=== PATIENT | female | born 2000 | race Caucasian/White ===

== ENCOUNTER 2023-10-10 06:33 | Inpatient (IN) | payer BC ==
[2023-10-10] MEDS ORDERED: CARBOPROST TROMETHAMINE 250 MCG/ML 1 ML AMP IM PRN (07:24)
[2023-10-10] MEDS ORDERED: OXYTOCIN 10 UNIT/ML 1 ML VIAL IM PRN (07:24)
[2023-10-10] MEDS ORDERED: TRANEXAMIC 1,000 MG/100ML-NACL 1,000 MG in EMPTY BAG 1 BAG IV PRN (07:24)
[2023-10-10] MEDS ORDERED: miSOPROStoL 200 MCG TAB PO PRN (07:24)
[2023-10-10] MEDS ORDERED: miSOPROStoL 200 MCG TAB RECTAL PRN (07:24)
[2023-10-10] MEDS ORDERED: TERBUTALINE 1 MG/ML VIAL SQ PRN (07:24)
[2023-10-10] MEDS: LACTATED RINGERS 1,000 ML IV SCH (07:32)
--- NOTE | 2023-10-10 07:32 | P.HPOB ---
History of Present Illness H&P Date: 10/10/23 Chief Complaint: Contractions, leaking of fluid Ms. Montanez is a 23 year old at 41 weeks and 3 days with EDC o 09/30/23 who presents to L&D with regular uterine contractions every 3-5 minutes and complaints of leaking of clear amniotic fluid since 7am yesterday morning (10/08). Amnisure is positive in triage and she is found to be 1/50/-3. The has been notable for the finding of a marginal cord insertion, for which she has had weekly surveillance throughout the third trimester. The fetus is estimated to be in the 26%ile for weight based on a 32 week US. work-up: blood type, O positive, antibody screen negative, rubella immune, VDRL non-reactive, HBsAg negative, HIV negative, HCV Ab non-reactive, gonorrhea negative, chlamydia negative, 1 hour GTT wnl, GBS negative. Past Medical History History of Any Multi-Drug Resistant Organisms: None Reported Smoking Status: Former smoker Medications and Allergies Home Medications Medication Instructions Recorded Confirmed Type No Known Home Medications 10/10/23 10/10/23 History Allergies Allergy/AdvReac Type Severity Reaction Status Date / Time No Known Allergies Allergy Verified 10/10/23 06:39 Exam Intake and Output 10/09/23 10/10/23 10/10/23 22:59 06:59 14:59 Other: Weight 85.729 kg Focused physical exam is performed. This is a healthy-appearing in no apparent distress. Breathing is non-labored. Abdomen is gravid and non-tender. Cervical exam per OB RN is 1/50/-3. Amnisure is positive. Extremities non- tender and non-edematous. heart tones are Category I and tocometer is graphing contractions every 3-5 minutes. Assessment and Plan Assessment: 23 year old at 41 weeks and 3 days with prolonged rupture of membranes and regular uterine contractions Plan: Admit, clear liquid diet, pitocin per protocol, continuous EFM and tocometer. Per ACOG guidelines, will start antibiotics if clinical signs of chorioamnionitis develop. Continue to monitor closely.
[2023-10-10 07:50] LABS: Appearance,Urine Clear (Clear); Bilirubin,Urine Negative (Negative); Blood,Urine Negative (Negative); Color,Urine Colorless; Glucose,Urine (UA) Negative (Negative); Ketones,Urine Negative (Negative); Leukocyte Esterase,Urine Negative (Negative); Nitrite,Urine Negative (Negative); PH, Urine 6.5 (5.0-8.0); Protein,Urine Negative (Negative); Specific Gravity,Urine 1.006 (1.001-1.035); Urobilinogen,Urine <2.0 mg/dL (<2.0)
[2023-10-10 07:53] LABS: Basophils % (A) 0 %; Eosinophils # (A) 0.1 k/uL (0-0.7); Eosinophils % (A) 1 %; HCT 29.3 % (34.0-46.0); HGB 9.6 gm/dL (11.4-16.0); Lymphocytes # (A) 1.8 k/uL (1.0-4.8); Lymphocytes % (A) 21 %; MCH 29.6 pg (25.0-35.0); MCHC 32.9 g/dL (31.0-37.0); Mean Platelet Volume 10.5; Monocytes # (A) 0.5 k/uL (0-1.0); Monocytes % (A) 6 %; Neutrophils # (A) 6.3 k/uL (1.3-7.7); Neutrophils % (A) 71 %; Platelet Count 216 k/uL (150-450); RBC 3.26 m/uL (3.80-5.40); RDW 13.9 % (11.5-15.5); WBC 8.9 k/uL (3.8-10.6)
[2023-10-10 07:58] LABS: Creatinine,Urine Random 33.8 mg/dL; Protein/Creatinine Ratio,Urine 0.444
[2023-10-10 08:26] LABS: ALT 16 U/L (4-34); AST 29 U/L (14-36); African American GFR (CKD) >90 (>60 ml/min/1.73 sqM); Blood Urea Nitrogen 8 mg/dL (7-17); LDH 200 U/L (120-246); Non-African American GFR(CKD) >90 (>60 ml/min/1.73 sqM); Uric Acid 5.6 mg/dL (3.7-7.4)
[2023-10-10] MEDS: NALBUPHINE 10 MG/ML (10 ML MDV) IV PRN (10:33)
[2023-10-10] MEDS: OXYTOCIN 30 UNITS/500 ML NS 30 UNIT in SALINE 1 500ML.BAG IV SCH (11:14)
[2023-10-10] MEDS: PENICILLIN G POTASSIUM 5,000,000 UNIT in DEXTROSE 5% IN WATER 100 ML IVPB STA (15:41)
[2023-10-10] MEDS: PENICILLIN G POTASSIUM 2,500,000 UNIT in DEXTROSE 5% IN WATER 100 ML IVPB SCH (19:56)
[2023-10-10] MEDS ORDERED: fentaNYL (PF) 50 MCG/ML 5 ML AMP ONE (22:32)
[2023-10-10] MEDS ORDERED: SODIUM CHLORIDE 0.9% 250 ML BAG ONE (22:32)
[2023-10-10] MEDS ORDERED: ROPIVACAINE 5 MG/ML 30 ML VIAL ONE (22:32)
[2023-10-11] MEDS: METHYLERGONOVINE 0.2 MG/ML 1 ML AMP IM PRN (01:13)
[2023-10-11] MEDS: LIDOCAINE 0.5% (PF) 5 MG/ML (50 ML SDV) SQ PRN (01:27)
[2023-10-11] MEDS ORDERED: ZOLPIDEM 5 MG TAB PO PRN (01:28)
[2023-10-11] MEDS ORDERED: HYDROcodone/APAP 7.5-325MG 1 EACH TAB PO PRN (01:28)
[2023-10-11] MEDS ORDERED: diphenhydrAMINE 25 MG CAP PO PRN (01:28)
[2023-10-11] MEDS ORDERED: LANOLIN CREAM 1 GM TUBE TOPICAL PRN (01:28)
[2023-10-11] MEDS ORDERED: diphenhydrAMINE 50 MG/ML 1 ML VIAL IVP PRN ×2 (01:28)
[2023-10-11] MEDS ORDERED: diphenhydrAMINE 50 MG CAP PO PRN (01:28)
[2023-10-11] MEDS ORDERED: HYDROCORTISONE 2.5% RECTAL CREAM 30 GM TUBE RECTAL PRN (01:28)
[2023-10-11] MEDS ORDERED: SIMETHICONE 80 MG CHEWABLE PO PRN (01:28)
[2023-10-11] MEDS ORDERED: HYDROcodone/APAP 5-325MG 1 EACH TAB PO PRN (01:28)
[2023-10-11] MEDS ORDERED: OXYTOCIN 30 UNITS/500 ML NS 30 UNIT in SALINE 1 500ML.BAG IV SCH (01:30)
--- NOTE | 2023-10-11 01:34 | P.PROBDLV ---
Vaginal Delivery Note - . Vaginal Delivery Note: The patient is a 23-year-old 1 para 0 admitted at sevenths weeks as established by last menstrual period and confirmed by 16-week ultrasound. She is admitted with documented spontaneous rupture of membranes for clear fluid but admits that rupture of membranes occurred approximately 24 hours prior to presentation. On labor and delivery, she made slow progress through the latent phase of labor and ultimately had antibiotic prophylaxis started for prolonged r upture of membranes. She continued to make slow but steady progress through the active phase of labor until she arrested dilation at approximately 8 cm for approximately 4 hours. She then agreed to have an epidural catheter placed for analgesia which gave her significant relief. She then progressed to complete and pushed over the course of approximately 45 minutes to a normal spontaneous vaginal delivery of a viable 7 pound 11 ounce baby boy with Apgars of 8 at 1 minute and 9 at 5 minutes delivered in the left occiput anterior position. There was noted to be thick meconium stained fluid at the time of delivery and the nose and mouth were thoroughly suctioned on the perineum prior to delivery. After delivery, the infant was immediately vigorous though thorough suctioning after delivery was also carried out. The placenta had the cord lacerate at the marginal insertion despite only gentle traction on it requiring manual extraction of the placenta. The placenta did appear to be intact though clearly lacerated from manual extraction. There was clearly a marginal insertion which I suspect was also slightly velamentous. It was very clearly meconium stained and there was a three-vessel cord. A very small second-degree midline episiotomy had been cut and extended into a slightly larger second-degree midline laceration. This was repaired in standard fashion using 3-0 chromic c atgut without difficulty. She did have some atony at the time of delivery as well which was managed with both Pitocin and 1 injection of Methergine intramuscularly. Estimated blood loss for the entire case and delivery was approximately 450 mL. The only complication was the need for manual extraction of the placenta secondary to the cord laceration. All sponge, instrument, and needle counts were correct. Both mother and are resting comfortably in recovery.
[2023-10-11 01:41] VITALS: RESP 16
[2023-10-11] MEDS: IBUPROFEN 600 MG TAB PO SCH (02:02)
[2023-10-11] MEDS: BENZOCAINE/MENTHOL SPRAY 1 GM/SPRAY AEROSOL TOPICAL PRN (02:03)
[2023-10-11] MEDS: ACETAMINOPHEN TAB 325 MG TAB PO PRN (05:04)
[2023-10-11] MEDS: SENNOSIDES-DOCUSATE SODIUM 1 EACH TAB PO SCH (20:08)
[2023-10-12 05:29] LABS: Basophils % (A) 0 %; Eosinophils # (A) 0.1 k/uL (0-0.7); Eosinophils % (A) 1 %; Hypochromasia Slight; Lymphocytes # (A) 2.4 k/uL (1.0-4.8); Lymphocytes % (A) 23 %; MCH 30.4 pg (25.0-35.0); MCHC 32.9 g/dL (31.0-37.0); MCV 92.2 fL (80.0-100.0); Mean Platelet Volume 9.1; Monocytes # (A) 0.5 k/uL (0-1.0); Monocytes % (A) 5 %; Neutrophils # (A) 7.2 k/uL (1.3-7.7); Neutrophils % (A) 70 %; Platelet Count 176 k/uL (150-450); RBC 1.91 m/uL (3.80-5.40); RDW 14.4 % (11.5-15.5); WBC 10.3 k/uL (3.8-10.6)
[2023-10-12 06:20] LABS: HGB 5.8 gm/dL (11.4-16.0)
[2023-10-12 06:21] LABS: HCT 17.6 % (34.0-46.0)
--- NOTE | 2023-10-12 09:19 | P.DS ---
Providers Date of admission: 10/10/23 07:09 Expected date of discharge: 10/12/23 Attending physician: Bernie Crowder MD Primary care physician: Stated None - Discharge Diagnosis(es) (1) Acute blood loss anemia Current Visit: Yes Status: Acute (2) Normal spontaneous vaginal delivery Current Visit: Yes Status: Acute Hospital Course: The patient is a 23-year-old 1 para 0 admitted at 41 and 3 days by good dating parameters. She presents to labor and delivery with spontaneous rupture of membranes for clear fluid and a history of having had rupture 24 hours prior to presentation. Her was complicated only by marginal cord insertion for which she had weekly reassuring testing. Her was otherwise uncomplicated and group B strep status was negative. When I took over the management of the case, I started antibiotic prophylaxis for prolonged rupture of membranes. She had been on Pitocin augmentation and had declined epidural analgesia. She made slow but steady progress to approximately 8 cm at which time she arrested dilation for 3 to 4 hours. She then agreed to an epidural analgesic which was placed. Approximately 1 hour later she was found to be complete and +1 station. She then pushed over the course of approximately 45 minutes to a normal spontaneous vaginal delivery of a viable 7 pound 11 ounce baby boy with Apgars of 8 at 1 minute and 9 at 5 minutes. She did have a moderate amount of bleeding at the time of delivery and afterwards and was noted to have moderate tachycardia with some relatively low blood pressures. She was found on day #1 to have a hemoglobin of 5.8 but denied any symptoms of orthostasis. Nevertheless, after discussion with the patient regarding the potential for danger, she agreed to undergo a transfusion of 1 unit of packed red blood cells. Aside from the transfusion, her course was entirely uncomplicated with vital signs remaining stable and her temperature was afebrile throughout. She was deemed stable for discharge on day #1 and was discharged home to follow-up in the office in 6 weeks time routinely. Discharge instructions included calling for any significantly increased bleeding or foul- smelling lochia, significantly increased fever or abdominal pain, perineal complaints, breast complaints, or anything else that concerned her. She was additionally instructed to have nothing in the vagina for at least 6 weeks time to include intercourse. She understood her instructions and agrees to follow-up as noted above. Discharge medications included continued vitamins as she has opted to breast-feed. She was otherwise to use [id number] analgesic pain medications as needed. Maternal blood type is O+ and rubella status is immune. Discharge hemoglobin and hematocrit are pending following the infusion of 1 unit of packed red blood cells. Procedures: #1. Pitocin augmentation #2. Antibiotic prophylaxis #3. Epidural analgesia #4. Normal spontaneous vaginal delivery #5. Repair of second-degree perineal laceration #6. Transfusion 1 unit packed red blood cells Plan - Discharge Summary New Discharge Prescriptions: No Action No Known Home Medications Discharge Medication List No Known Home Medications 10/10/23 [History] Follow up Appointment(s)/Referral(s): Bernie Crowder MD [STAFF PHYSICIAN] - 6 Weeks Discharge Disposition: HOME SELF-CARE
[2023-10-12 19:38] LABS: Basophils % (A) 0 %; Eosinophils # (A) 0.1 k/uL (0-0.7); Eosinophils % (A) 1 %; HCT 20.7 % (34.0-46.0); Hypochromasia Slight; Lymphocytes % (A) 20 %; MCH 30.5 pg (25.0-35.0); MCHC 33.9 g/dL (31.0-37.0); Mean Platelet Volume 9.4; Monocytes # (A) 0.5 k/uL (0-1.0); Monocytes % (A) 5 %; Neutrophils # (A) 7.2 k/uL (1.3-7.7); Neutrophils % (A) 73 %; Platelet Count 180 k/uL (150-450); RDW 15.3 % (11.5-15.5); WBC 9.9 k/uL (3.8-10.6)
[2023-10-12 19:57] VITALS: BP 136/89; PULSE 96; TEMP 97.8
== END 2023-10-12 21:00 | disposition home or self-care (01) | DRG 806 ==
LOC: FBPOP 06:33 → 4FBP 07:09
PROVIDERS: ADMIT Obstetrics & Gynecology; ATTEND Obstetrics & Gynecology
PROC: 10D17Z9 Manual Extraction of Products of Conception, Retained, Via Natural or Artificial Opening (ICD-10-PCS; principal; 2023-10-11)
PROC: 0KQM0ZZ Repair Perineum Muscle, Open Approach (ICD-10-PCS; 2023-10-11)
PROC: 10E0XZZ Delivery of Products of Conception, External Approach (ICD-10-PCS; 2023-10-11)
PROC: 30233N1 Transfusion of Nonautologous Red Blood Cells into Peripheral Vein, Percutaneous Approach (ICD-10-PCS; 2023-10-12)
DX: O42.12 Full-term premature rupture of membranes, onset of labor more than 24 hours following rupture (principal); D62 Acute posthemorrhagic anemia; Z37.0 Single live birth; O62.1 Secondary uterine inertia; O77.0 Labor and delivery complicated by meconium in amniotic fluid; O70.1 Second degree perineal laceration during delivery; O48.0 Post-term pregnancy; O69.89X0 Labor and delivery complicated by other cord complications, not applicable or unspecified; O75.89 Other specified complications of labor and delivery; O99.02 Anemia complicating childbirth; Z3A.41 41 weeks gestation of pregnancy; Z87.891 Personal history of nicotine dependence
CPT/HCPCS: 59025; 81003; 82565; 82570; 83615; 84156; 84450; 84460; 84520; 84550; 85025; 86850; 86900; 86901; 86920; 99213